=== PATIENT | female | born 1945 | race Caucasian/White ===

== ENCOUNTER → 2018-08-22 | Outpatient (REF) | payer MEDICARE, BC ==
[2018-08-22 14:10] LABS: BASO % 0.4 % (0.0-1.0); EOS # 0.4 10^3/uL (0.0-0.50); EOS % 4.4 % (0.0-3.0); HEMATOCRIT 42.4 % (36.0-47.0); HEMOGLOBIN 13.7 g/dl (12.0-15.5); LYMPH % 20.4 % (24.0-44.0); MEAN CORPUSCULAR HEMOGLOBIN 28.4 pg (27.0-33.0); MEAN CORPUSCULAR HGB CONC 32.3 g/dl (32.0-36.5); MONO # 0.7 10^3/uL (0.0-0.8); NEUTROPHILS # 6.4 10^3/uL (1.8-7.7); PLATELET COUNT, AUTOMATED 203 10^3/uL (150-450); RED BLOOD COUNT 4.82 10^6/uL (4.00-5.40); WHITE BLOOD COUNT 9.6 10^3/uL (4.0-10.0)
[2018-08-22 14:25] LABS: ALBUMIN 4.1 GM/DL (3.2-5.2); ALT/SGPT 36 U/L (12-78); BILIRUBIN,TOTAL 0.4 MG/DL (0.2-1.0); BLOOD UREA NITROGEN 13 MG/DL (7-18); CARBON DIOXIDE LEVEL 24 MEQ/L (21-32); CHLORIDE LEVEL 107 MEQ/L (98-107); CREATININE FOR GFR 0.81 MG/DL (0.55-1.30); FREE T4 1.04 NG/DL (0.76-1.46); GLOMERULAR FILTRATION RATE > 60.0 (>39); GLUCOSE, FASTING 99 MG/DL (70-100); POTASSIUM SERUM 4.4 MEQ/L (3.5-5.1); RHEUMATOID FACTOR QUANT < 10.0 IU/ML (<15.0); SODIUM LEVEL 140 MEQ/L (136-145); TOTAL PROTEIN 7.4 GM/DL (6.4-8.2)
[2018-08-22 14:26] LABS: FOLATE 13.1 NG/ML; VITAMIN B12 LEVEL 248 PG/ML
[2018-08-22 14:29] LABS: HEMOGLOBIN A1c 7.1 %
[2018-08-22 14:44] LABS: ERYTHROCYTE SEDIMENTATION RATE 9 mm/hr (0-30)
[2018-08-24 11:15] LABS: ALBUMIN % 60.4 % (55.8-66.1); ALPHA-1-GLOBULIN % 4.1 % (2.9-4.9); ALPHA-2-GLOBULINS % 11.4 % (7.1-11.8); BETA-2-GLOBULINS % 6.1 % (3.2-6.5)
[2018-08-24 11:16] LABS: ALBUMIN 4.47 GM/DL (3.29-5.55); ALPHA-2-GLOBULINS 0.84 GM/DL (0.42-0.99); BETA-1-GLOBULINS 0.52 GM/DL (0.28-0.60); BETA-2-GLOBULINS 0.45 GM/DL (0.19-0.55); GAMMA GLOBULINS 0.81 GM/DL (0.65-1.58)
== END ==
LOC: M LABNEURO 13:39
PROVIDERS: ATTEND Psychiatry & Neurology Neurology
DX: E11.9 Type 2 diabetes mellitus without complications (principal); E07.9 Disorder of thyroid, unspecified

== ENCOUNTER → 2018-08-25 | Outpatient (CLI) | payer MEDICARE, BC ==
--- NOTE | 2018-08-25 15:59 | REP ---
MRI lumbar spine without contrast: History: Spinal stenosis. Bilateral foot neuropathy. Neurogenic claudication. Low back pain and weakness. No comparison lumbar spine imaging. Technique: Sagittal and axial T1 and T2-weighted scans are acquired in the usual fashion with and without fat saturation. Sequences include spin echo, turbo spin-echo, and STIR imaging sequences. MRI findings: Lumbar vertebral body heights are preserved. No bony destructive lesion is seen. No fracture or collapse is noted. There is no evidence of spondylolysis but there is a grade 1 degenerative L4-5, 4 mm spondylolisthesis. Degenerative disc disease is noted diffusely. The tip of the conus medullaris is normal in position and appearance at T12-L1. No extra vertebral abnormality is observed. Axial and sagittal images at L5-S1 demonstrate moderate facet hypertrophy bilaterally. There is mild diffuse disc bulging. No thecal sac compression is seen. There is fairly prominent epidural fat at L5-S1. No neural foraminal narrowing is noted. At L4-5, there is moderate diffuse disc bulging. Bilateral neural foraminal narrowing is seen, left more so than right associated with the degenerative spondylolisthesis. Also, there is moderate to marked central canal stenosis at L4-5. The mid line AP dimension of the thecal sac at L4-5 is 7 mm. CSF signal is effaced from the thecal sac at the disc level on T2-weighted scans. There is fairly advanced osteoarthritic facet hypertrophy and some ligamentum flavum hypertrophy at L4-5. At L3-4, there is diffuse disc bulging and osteophytic ridging. There is right-sided neural foraminal narrowing from disc bulging and facet hypertrophy. Bilateral mild facet hypertrophy is noted. There is mild central canal stenosis at L3-4. At L2-3, there is mild diffuse disc bulging indenting the ventral margin of the thecal sac. No central canal stenosis or neural foraminal narrowing is seen. At L2-3, there is also diffuse disc bulging which indents the ventral margin of the thecal sac. There is no evidence of central canal stenosis or neural foraminal narrowing. Impression: Degenerative spondylosis. Changes are most pronounced at L4-5 where there is a degenerative grade 1 spondylolisthesis, advanced osteoarthritic facet hypertrophy, and moderate to marked central canal stenosis. Electronically Signed by Luis Vail MD 08/25/2018 08:10 P
== END ==
LOC: M PLARAD 12:58
PROVIDERS: ATTEND Psychiatry & Neurology Neurology
DX: M48.062 Spinal stenosis, lumbar region with neurogenic claudication (principal); M51.26 Other intervertebral disc displacement, lumbar region; R53.1 Weakness; M47.896 Other spondylosis, lumbar region

== ENCOUNTER 2018-09-07 06:27 | Day surgery (SDC) | payer MEDICARE, BC ==
[~2018-09-07] VITALS: Ht 158.8 cm; Wt 96.5 kg
[~2018-09-07 06:27] MED LIST: AMLO10TA5 PO; ASPI81TA26 PO; CALC1TAB29 PO; GLIP10TA6 PO; INSULANT SC; JANU50TA25 PO; LOSA25TA14 PO; METO1TAB33 PO; PRES10CA2 PO; RANI150T PO; ROPI1TAB PO
[2018-09-07] MEDS ORDERED: CEFUROXIME 1MG/0.1ML INTRACAMERAL INJ As Ordered ONE (06:35)
[2018-09-07] MEDS ORDERED: LIDOCAINE 0.75%/EPINEPHRINE 0.025% IN BSS 1ML SYR INTRACAMERAL (OR ONLY) As Ordered ONE (06:35)
[2018-09-07] MEDS ORDERED: POVIDONE-IODINE 5% OPHTH PREP SOL 30ML As Ordered ONE (06:35)
[2018-09-07] MEDS ORDERED: DUOVISC (0.50ML VISCOAT/0.55ML PROVISC) OPHTH KIT As Ordered ONE (06:35)
[2018-09-07] MEDS ORDERED: BALANCED SALT IRRIGATION SOLUTION 500ML BAG (FOR OR EYE MACHINE) As Ordered ONE (06:35)
[2018-09-07] MEDS ORDERED: TROPICAMIDE 1% OPHTH SOLN 2ML OD ONE (07:00)
[2018-09-07] MEDS ORDERED: PHENYLEPHRINE 2.5% OPHTH SOL 2ML OD ONE (07:00)
[2018-09-07] MEDS ORDERED: OFLOXACIN 0.3 % (OCUFLOX) OPTH SOL 5ML OD ONE (07:00)
[2018-09-07] MEDS ORDERED: PROPARACAINE 0.5% OPHTH SOL 15ML OD ONE (07:00)
[2018-09-07] MEDS ORDERED: fentaNYL 100 MCG/2 ML INJECTION (J3010) As Ordered ONE (07:36)
[2018-09-07] MEDS ORDERED: MIDAZOLAM INJ 2 MG/2 ML VIAL (J2250) As Ordered ONE (07:36)
[2018-09-07 09:25] VITALS: BP 156/83
--- NOTE | 2018-09-11 17:41 | RO ---
DATE OF PROCEDURE: 09/07/2018 PREOPERATIVE DIAGNOSES: 1. Visually significant nuclear sclerotic cataract right eye. 2. Astigmatism right eye. POSTOPERATIVE DIAGNOSES: 1. Visually significant nuclear sclerotic cataract right eye. 2. Astigmatism right eye. PROCEDURE: 1. Cataract extraction with use of phacoemulsification, and placement of intraocular lens, [id number], 24.0 D, right eye, with use of femtosecond laser. 2. Placement of limbal relaxing incisions right eye. SURGEON: Jean Carlos Chavez DO [employer]: None. ANESTHESIA: Local with monitored anesthesia care (MAC). COMPLICATIONS: None POSTOPERATIVE CONDITION: Stable INDICATIONS FOR SURGERY: 1. Blurred vision affecting patients activities of daily living. DESCRIPTION OF PROCEDURE: The patient was seen in the preoperative area and properly identified. The correct operative eye was identified and marked. The patient received topical anesthetic, antibiotics, and topical dilating drops. The patient was then transferred to the laser room. The patient was positioned under the laser. A timeout was performed. The laser was applied. A 4.8 mm capsulotomy, fragmentation, and limbal relaxing incisions were created. The patient tolerated the procedure well and was transferred to the operating room. The correct side was re-identified and a timeout was performed. The eye was prepped and draped in a sterile fashion. The eyelids were isolated with Tegaderm tape and the lids were held open with an adjustable speculum. A 1.0 mm paracentesis incision was made. Intraocular preservative free Shugarcaine was then injected into the anterior chamber. Viscoelastic was then injected into the anterior chamber through the paracentesis. Using a 2.4 mm sharp-tipped keratome, the anterior chamber was entered via a temporal clear cornea incision. Utrata forceps were used to removed the free floating capsulotomy. Hydrodissection was performed with BSS on a blunt cannula until the nucleus was able to rotate freely. The crystalline lens was phacoemulsified and aspirated. Irrigation/aspiration was used to remove the cortical material Cohesive viscoelastic was placed into the capsular bag to deepen it. The implant was placed into the capsular bag and allowed to unfold. Placement was confirmed by visualizing the anterior capsulorrhexis. Irrigation/aspiration was used to remove the viscoelastic. The clear corneal incision was hydrated with BSS on a blunt cannula. The lens was well positioned. The incisions were then tested for leaks and found to be negative. The eye was then palpated for appropriate pressure and adjusted accordingly with BSS. The eyelid speculum was then carefully removed. A shield was placed over the eye. The patient tolerated the procedure well and was discharge to the recovery unit in a stable condition.
== END 2018-09-07 09:40 | disposition home or self-care (01) ==
LOC: M SDC 06:27
PROVIDERS: ATTEND Ophthalmology
DX: H25.11 Age-related nuclear cataract, right eye (principal); I10 Essential (primary) hypertension; K21.9 Gastro-esophageal reflux disease without esophagitis; E11.9 Type 2 diabetes mellitus without complications; Z79.4 Long term (current) use of insulin; Z79.82 Long term (current) use of aspirin; Z79.899 Other long term (current) drug therapy; Z88.2 Allergy status to sulfonamides; Z88.8 Allergy status to other drugs, medicaments and biological substances
CPT/HCPCS: 66984; J2250; J3010; V2632